=== PATIENT | female | born 1995 | race Caucasian/White ===

== ENCOUNTER 2017-12-15 01:24 | Emergency (ER) | payer OTHER, MEDICAID ==
[~2017-12-15] VITALS: Ht 170.2 cm; Wt 90.7 kg
[~2017-12-15 01:24] MED LIST: BACTRIM DS TAB1 EACH PO; BIRTH CONTROL; DOXYCYCLINE 10100 MG PO; FLAGYL500 M1 PO; HYDROCODONE-AP1 EAC6 PO; HYDROCODONE-APA1 TA1 PO; JOLESSA1 EACH; LIDOCAINE 22 %/30 GM; LOMOTIL TABLET1 EACH PO; NAPROSYN500 MG PO; ONDANSETRON HCL4 M2 PO; TRINATE TABLET1 TAB PO
[2017-12-15] MEDS ORDERED: ZOFRAN ODT4 MG PO (01:55)
[2017-12-15] MEDS ORDERED: TAMIFLU75 MG PO (01:55)
[2017-12-15 02:24] LABS: INFLUENZA A ANTIGEN None Detected (None Detect); INFLUENZA B ANTIGEN None Detected (None Detect)
[2017-12-15 02:33] VITALS: BP 130/83
== END 2017-12-15 02:34 | disposition home or self-care (01) ==
LOC: M.ERS 01:24
PROVIDERS: Emergency Medicine
DX: J11.1 Influenza due to unidentified influenza virus with other respiratory manifestations (principal); Z86.14 Personal history of Methicillin resistant Staphylococcus aureus infection

== ENCOUNTER 2018-06-23 06:41 | Emergency (ER) | payer OTHER, MEDICAID ==
[~2018-06-23] VITALS: Ht 170.2 cm; Wt 90.7 kg
[~2018-06-23 06:41] MED LIST changes: +TAMIFLU75 MG PO; +ZOFRAN ODT4 MG PO
[2018-06-23 07:25] LABS: URINE BILIRUBIN NEGATIVE (Negative); URINE BLOOD NEGATIVE (Negative); URINE CLARITY CLEAR; URINE COLOR YELLOW; URINE GLUCOSE-RANDOM NEGATIVE (Negative); URINE KETONES NEGATIVE (Negative); URINE LEUKOCYTES-REFLEX 1+ (Negative); URINE NITRITE-REFLEX NEGATIVE (Negative); URINE PROTEIN NEGATIVE (Negative); URINE SPECIFIC GRAVITY 1.025 (1.005-1.030); URINE UROBILINOGEN 0.2 E.U./dl (0.2-1.0)
[2018-06-23 07:52] LABS: SQUAMOUS >10 Many /LPF (0-3); URINE WBC-REFLEX 6-15 Few /HPF (0-5)
[2018-06-23 07:53] LABS: MUCUS 0-3 Light strn/LPF (None Seen); URINE RBC 0-2 Rare /HPF (0-2)
[2018-06-23 07:54] LABS: CRYSTALS None Seen /LPF (None Seen); HYALINE CASTS 0-3 Few /LPF (None Seen)
[2018-06-23 07:55] LABS: CALCIUM 8.3 mg/dL (8.5-10.1); CREATININE 1.1 mg/dL (0.6-1.3)
[2018-06-23] MEDS ORDERED: ZOFRAN ODT4 MG SUBLING (07:56)
[2018-06-23 07:59] LABS: ABSOLUTE EOSINOPHILS 0.1 thou/uL (0.0-0.7); ABSOLUTE LYMPHOCYTES 2.5 thou/uL (0.8-5.3); ABSOLUTE MONOCYTES 0.7 thou/uL (0.0-1.2); ABSOLUTE NEUTROPHILS 5.4 thou/uL (1.6-8.1); APTT 27.1 Seconds (25.0-31.3); BASOPHILS 0.3 %; EOSINOPHILS 0.7 %; HEMATOCRIT 44.8 % (37.0-47.0); HEMOGLOBIN 15.3 gm/dL (12.0-15.0); MCH 31.8 pg (26.0-34.0); MCHC 34.2 g/dL (28.0-37.0); MCV 92.9 fL (80.0-100.0); MONOCYTES 7.7 %; MPV 9.4 fl. (7.2-11.1); NUCLEATED RBCS 0 /100WBC; PLATELET COUNT* 280 thou/uL (150-400); POLYS 62.3 %; PROTIME 9.8 Seconds (9.20-11.50); RBC 4.82 mil/uL (4.20-5.00); RDW-CV 12.6 % (10.5-14.5); WBC 8.7 thou/uL (4.0-11.0)
[2018-06-23 08:00] LABS: ALBUMIN 3.9 g/dL (3.4-5.0); TOTAL BILIRUBIN 0.3 mg/dL (<0.1-1.0); TOTAL PROTEIN 7.6 g/dL (6.4-8.2)
[2018-06-23] MEDS ORDERED: CIPROFLOXACIN500 M1 PO (08:02)
[2018-06-23 08:25] VITALS: BP 142/90
== END 2018-06-23 08:25 | disposition home or self-care (01) ==
LOC: M.ERS 06:41
PROVIDERS: Family Medicine
DX: R11.2 Nausea with vomiting, unspecified (principal); N39.0 Urinary tract infection, site not specified; K59.00 Constipation, unspecified; Z86.14 Personal history of Methicillin resistant Staphylococcus aureus infection

== ENCOUNTER 2019-03-21 18:26 | Emergency (ER) | payer OTHER ==
[~2019-03-21] VITALS: Ht 170.2 cm; Wt 99.8 kg
[~2019-03-21 18:26] MED LIST changes: +AMOXICILLIN 50500 MG PO; +CIPROFLOXACIN500 M1 PO; +PREDNISONE 20 M20 M1 PO; +PROAIR HFA8.5 GM INH; +ZOFRAN ODT4 MG SUBLING; +ZPAK PO
[2019-03-21 19:09] LABS: URINE BILIRUBIN NEGATIVE (Negative); URINE BLOOD NEGATIVE (Negative); URINE CLARITY CLEAR; URINE COLOR YELLOW; URINE GLUCOSE-RANDOM NEGATIVE (Negative); URINE KETONES NEGATIVE (Negative); URINE LEUKOCYTES-REFLEX NEGATIVE (Negative); URINE NITRITE-REFLEX NEGATIVE (Negative); URINE PROTEIN NEGATIVE (Negative); URINE SPECIFIC GRAVITY 1.025 (1.005-1.030); URINE UROBILINOGEN 0.2 E.U./dl (0.2-1.0)
[2019-03-21 19:31] LABS: CALCIUM 8.7 mg/dL (8.5-10.1); POTASSIUM 4.4 mmol/L (3.5-5.1)
[2019-03-21 19:36] LABS: ALBUMIN 4.2 g/dL (3.4-5.0); TOTAL BILIRUBIN 0.5 mg/dL (<0.1-1.0); TOTAL PROTEIN 7.5 g/dL (6.4-8.2)
[2019-03-21 19:36] LABS: ABSOLUTE EOSINOPHILS 0.1 thou/uL (0.0-0.7); ABSOLUTE LYMPHOCYTES 2.7 thou/uL (0.8-5.3); ABSOLUTE MONOCYTES 0.4 thou/uL (0.0-1.2); ABSOLUTE NEUTROPHILS 3.3 thou/uL (1.6-8.1); BASOPHILS 0.6 %; EOSINOPHILS 1.6 %; HEMATOCRIT 43.2 % (37.0-47.0); HEMOGLOBIN 14.9 gm/dL (12.0-15.0); MCH 31.5 pg (26.0-34.0); MCHC 34.5 g/dL (28.0-37.0); MCV 91.2 fL (80.0-100.0); MONOCYTES 5.9 %; NUCLEATED RBCS 0 /100WBC; PLATELET COUNT* 265 thou/uL (150-400); POLYS 50.9 %; RBC 4.74 mil/uL (4.20-5.00); RDW-CV 12.4 % (10.5-14.5); WBC 6.6 thou/uL (4.0-11.0)
[2019-03-21] MEDS ORDERED: TRAMADOL 50 MG50 MG PO (21:01)
[2019-03-21] MEDS ORDERED: NAPROSYN500 MG PO (21:01)
[2019-03-21] MEDS ORDERED: ACETAMINOPHEN-1 EAC1 PO (21:13)
[2019-03-21 21:32] VITALS: BP 135/77
== END 2019-03-21 21:32 | disposition home or self-care (01) ==
LOC: M.ERS 18:26
PROVIDERS: Physician Assistant
DX: R10.32 Left lower quadrant pain (principal); R11.2 Nausea with vomiting, unspecified

== ENCOUNTER 2019-09-07 22:58 | Emergency (ER) | payer OTHER ==
[~2019-09-07] VITALS: Ht 177.8 cm; Wt 95.3 kg
[~2019-09-07 22:58] MED LIST changes: +ACETAMINOPHEN-1 EAC1 PO; +TRAMADOL 50 MG50 MG PO
[2019-09-07 23:12] LABS: URINE BILIRUBIN NEGATIVE (Negative); URINE BLOOD 3+ (Negative); URINE CLARITY CLEAR; URINE COLOR YELLOW; URINE GLUCOSE-RANDOM NEGATIVE (Negative); URINE KETONES NEGATIVE (Negative); URINE LEUKOCYTES-REFLEX NEGATIVE (Negative); URINE NITRITE-REFLEX POSITIVE (Negative); URINE PROTEIN NEGATIVE (Negative); URINE SPECIFIC GRAVITY >= 1.030 (1.005-1.030); URINE UROBILINOGEN 0.2 E.U./dl (0.2-1.0)
[2019-09-07 23:27] LABS: BACTERIA-REFLEX >30 Many /HPF (None Seen); CASTS None Seen /LPF (None Seen); CRYSTALS None Seen /LPF (None Seen); MUCUS 0-3 Light strn/LPF (None Seen); SQUAMOUS 0-3 Few /LPF (0-3); URINE RBC >20 Many /HPF (0-2); WBC CLUMPS Few (None Seen)
[2019-09-07] MEDS ORDERED: IBUPROFEN 800800 MG PO (23:41)
[2019-09-07] MEDS ORDERED: CIPROFLOXACIN500 M1 PO (23:41)
[2019-09-07] MEDS ORDERED: PYRIDIUM200 MG PO (23:41)
[2019-09-08] VITALS: BP 135/82
== END 2019-09-08 00:01 | disposition home or self-care (01) ==
LOC: M.ERS 22:58
PROVIDERS: Personal Emergency Response Attendant
DX: N39.0 Urinary tract infection, site not specified (principal)